=== PATIENT | female | born 1945 | race Caucasian/White ===

== ENCOUNTER 2020-12-15 07:04 | Day surgery (SDC) | payer BC ==
[~2020-12-15 07:04] MED LIST: Lactated Ringers 1,000 ML IV SCH; Sodium Chloride 0.9% 10 ML Syringe FLUSH PRN
[2020-12-15] MEDS ORDERED: Propofol 200 MG/20 ML SDV ONE (08:06)
[2020-12-15] MEDS ORDERED: Midazolam 1 MG/ML 2 ML SDV ONE (08:06)
[2020-12-15] MEDS ORDERED: Glycopyrrolate 0.2 MG/ML SDV ONE (08:06)
[2020-12-15] MEDS ORDERED: EPINEPHrine 1:10,000 1 MG/10 ML Syringe ONE (08:11)
--- NOTE | 2020-12-15 11:20 | PCM.PRNOTE ---
- Free Text/Narrative Note: PROCEDURE PERFORMED: Esophagogastroduodenoscopy with biopsy PRE-PROCEDURE DIAGNOSIS/INDICATION FOR PROCEDURE: Persistent epigastric pain CONSENT: Informed consent was obtained prior to the procedure after discussion of the risks (including pain, bleeding, infection, perforation, need for further procedures, adverse reaction to anesthesia, cardiovascular event), benefits and alternatives and expected outcomes. Verbal consent given and consent form signed. PROCEDURAL PAUSE: Completed SEDATION: Per anesthesia DESCRIPTION OF PROCEDURE: Patient was brought back to the operating room and placed in a left lateral decubitus position. Bite block placed. After adequate sedation and anesthetic was administered, endoscope was inserted into the patient's mouth and was passed easily through the esophagus and stomach into the duodenum without difficulty. Examined duodenum normal appearing. Pylorus normal appearing; biopsies obtained for H.pylori testing. Stomach, including viewing in retroflexion, normal appearing. 5cm hiatal hernia was present with the gastroesophageal junction at 35cm from the incisors and diaphragmatic pinch at 40cm from the incisors. Esophagus normal appearing. The scope was removed without difficulty. Patient tolerated the procedure well. No complications. IMPRESSION: Esophagogastroduodenoscopy performed revealing: - Small hiatal hernia - Biopsies for H.pylori testing pending PLAN: Will contact the patient when biopsy results received; patient has not been taking PPI in the past 2 weeks, so testing can be considered diagnostic without need for confirmatory repeat. Discussed appropriate administration of antacid medication. Follow-up with PCP in 1-2 weeks.
== END 2020-12-15 09:45 | disposition home or self-care (01) ==
LOC: KA.SDS 07:04
PROVIDERS: ATTEND Family Medicine
DX: K29.50 Unspecified chronic gastritis without bleeding (principal); K44.9 Diaphragmatic hernia without obstruction or gangrene; K31.89 Other diseases of stomach and duodenum; I78.1 Nevus, non-neoplastic; E78.2 Mixed hyperlipidemia; I10 Essential (primary) hypertension; Z79.899 Other long term (current) drug therapy
CPT/HCPCS: 00731; J2250; J2704; J3490; J7120

== ENCOUNTER 2023-12-18 11:45 | Observation (INO) | payer MEDICARE, BC ==
[2023-12-18 12:22] LABS: BASOPHILS ABSOLUTE AUTO 0.01 10^3/uL (0.00-0.10); BASOPHILS PERCENT AUTO 0.1 % (0.0-1.0); EOSINOPHILS ABSOLUTE AUTO 0.02 10^3/uL (0.10-0.30); EOSINOPHILS PERCENT AUTO 0.2 % (1.0-3.0); HEMATOCRIT 41.5 % (37.0-47.0); HEMOGLOBIN 14.1 g/dL (12.0-16.0); IMMATURE GRAN ABSOLUTE AUTO 0.02 10^3/uL (0.00-0.50); IMMATURE GRAN PERCENT AUTO 0.2 % (0.0-5.0); LYMPHOCYTES ABSOLUTE AUTO 0.51 10^3/uL (1.00-4.00); MEAN CORPUSCULAR HEMOGLOBIN 30.4 pg (27.0-31.0); MEAN CORPUSCULAR VOLUME 89.4 fL (82.0-92.0); MEAN PLATELET VOLUME 9.9 fL (7.4-10.4); MONOCYTES ABSOLUTE AUTO 0.16 10^3/uL (0.10-0.80); MONOCYTES PERCENT AUTO 1.9 % (2.0-8.0); NEUTROPHILS ABSOLUTE AUTO 7.79 10^3/uL (2.50-7.00); NEUTROPHILS PERCENT AUTO 91.6 % (50.0-70.0); PLATELET COUNT,PLT 128 10^3/uL (150-400); RED BLOOD CELL COUNT 4.64 10^6/uL (3.80-5.50); RED CELL DISTRIBUTION WIDTH 13.1 % (11.5-14.5); WHITE BLOOD CELL COUNT,WBC 8.51 10^3/uL (5.00-10.00)
[2023-12-18 12:23] LABS: APPEARANCE,URINE SLIGHTLY CLOUDY (CLEAR); BILIRUBIN,URINE NEGATIVE (NEGATIVE); COLOR,URINE YELLOW (YELLOW); GLUCOSE,URINE NEGATIVE (NEGATIVE); KETONES,URINE NEGATIVE (NEGATIVE); LEUKOCYTE ESTERASE,URINE SMALL (NEGATIVE); NITRITE,URINE NEGATIVE (NEGATIVE); OCCULT BLOOD,URINE TRACE-INTACT (NEGATIVE); PH,URINE 5.5 (5.0-9.0); PROTEIN,URINE NEGATIVE (NEGATIVE); UROBILINOGEN,URINE 0.2 E.U./dL (0.2-1.0)
[2023-12-18 12:31] LABS: BACTERIA,URINE FEW /HPF (NONE TO FEW); EPITHELIAL CELLS,URINE FEW /LPF; MUCUS,URINE FEW /LPF (NEGATIVE); RBC,URINE 0-5 /HPF (0-5)
[2023-12-18 12:41] LABS: ALANINE AMINOTRANSFERASE,ALT 23 U/L (14-63); ALBUMIN 4.24 g/dL (3.40-5.00); ALKALINE PHOSPHATASE 82 U/L (46-116); ANION GAP 15.3 mmol/L (5-15); ASPARTATE AMNIOTRANSFERASE,AST 17 U/L (15-37); BILIRUBIN TOTAL 0.7 mg/dL (0.2-1.0); BLOOD UREA NITROGEN,BUN 15 mg/dL (7-18); CARBON DIOXIDE,CO2 25.6 mmol/L (21.0-32.0); CHLORIDE,CL 101 mmol/L (98-107); CREATININE 0.72 mg/dL (0.51-1.17); EST CRCL DRUG DOSING (CG) 54.13 mL/min; GLUCOSE RANDOM 89 mg/dL (70-140); POTASSIUM,K 3.9 mmol/L (3.5-5.1); PROTEIN TOTAL,TP 7.3 g/dL (6.4-8.2); SODIUM,NA 138 mmol/L (136-145)
[2023-12-18 12:42] LABS: ESTIMATED GFR 86 mL/min (>=60)
[2023-12-18] MEDS: Sodium Chloride 0.9% 1,000 ML IV ONE (13:18)
[2023-12-18 13:23] LABS: INFLUENZA A NAA NEGATIVE (NEGATIVE); INFLUENZA B NAA NEGATIVE (NEGATIVE)
[2023-12-18 13:24] LABS: CORONAVIRUS COVID-19 NAA NEGATIVE (NEGATIVE)
[2023-12-18] MEDS ORDERED: Ondansetron 4 MG/2 ML SDV IV PRN (15:13)
[2023-12-18] MEDS ORDERED: Labetalol 100 MG/20 ML MDV IVPUSH PRN (15:20)
[2023-12-18] MEDS: Sodium Chloride 0.9% 1,000 ML IV SCH (15:39)
[2023-12-18] MEDS: Cefepime 2 GM in Sodium Chloride 0.9% 50 ML IV SCH (16:01)
[2023-12-18] MEDS: Atenolol 25 MG Tab PO SCH (16:03)
[2023-12-18] MEDS: Acetaminophen 325 MG Tab PO PRN (18:09)
[2023-12-18] MEDS: Rosuvastatin 5 MG Tab PO SCH (20:12)
[2023-12-18] MEDS: Famotidine 20 MG Tab PO SCH (20:12)
[2023-12-19] MEDS: Sodium Chloride 0.9% 10 ML Syringe FLUSH PRN (03:40)
[2023-12-19] MEDS ORDERED: Sodium Chloride 0.9% 10 ML Syringe FLUSH PRN (05:30)
[2023-12-19 07:09] LABS: HEMATOCRIT 35.6 % (37.0-47.0); MEAN CORPUSCULAR HEMOGLOBIN 30.5 pg (27.0-31.0); MEAN CORPUSCULAR HGB CONC 33.7 g/dL (32.0-36.0); MEAN CORPUSCULAR VOLUME 90.4 fL (82.0-92.0); MEAN PLATELET VOLUME 9.6 fL (7.4-10.4); PLATELET COUNT,PLT 105 10^3/uL (150-400); RED BLOOD CELL COUNT 3.94 10^6/uL (3.80-5.50); RED CELL DISTRIBUTION WIDTH 13.2 % (11.5-14.5); WHITE BLOOD CELL COUNT,WBC 3.56 10^3/uL (5.00-10.00)
[2023-12-19 07:20] LABS: ALBUMIN 3.32 g/dL (3.40-5.00); ANION GAP 11.1 mmol/L (5-15); BILIRUBIN TOTAL 0.8 mg/dL (0.2-1.0); CALCIUM 8.1 mg/dL (8.7-10.3); CARBON DIOXIDE,CO2 25.9 mmol/L (21.0-32.0); CREATININE 0.72 mg/dL (0.51-1.17); EST CRCL DRUG DOSING (CG) 54.13 mL/min; PROTEIN TOTAL,TP 6.1 g/dL (6.4-8.2)
== END 2023-12-19 12:50 | disposition home or self-care (01) ==
LOC: KA.ED 11:45 → KA.MS 13:29
PROVIDERS: ADMIT Internal Medicine; ATTEND Internal Medicine
DX: E86.0 Dehydration (principal); R55 Syncope and collapse; N39.0 Urinary tract infection, site not specified; I10 Essential (primary) hypertension; E78.00 Pure hypercholesterolemia, unspecified; R79.89 Other specified abnormal findings of blood chemistry; Z79.899 Other long term (current) drug therapy; Z20.822 Contact with and (suspected) exposure to COVID-19; Z91.09 Other allergy status, other than to drugs and biological substances
CPT/HCPCS: 0240U; 36415; 51798; 71045; 80053; 81001; 83605; 83735; 84484; 85025; 85027; 87040; 87086; 93005; 93010; 96360; 96361; 96365; 96366; 99223-GT; 99238-GT; 99284; 99285-25; A9270-GY; G0378; J0692; J3490; J7030; Q3014

== ENCOUNTER 2024-09-19 19:59 | Emergency (ER) | payer BC, MEDICARE ==
[2024-09-19] MEDS: Labetalol 100 MG/20 ML MDV IVPUSH ONE (21:05)
== END 2024-09-19 22:10 | disposition home or self-care (01) ==
LOC: KA.ED 19:59
DX: I10 Essential (primary) hypertension (principal); E78.00 Pure hypercholesterolemia, unspecified; K21.9 Gastro-esophageal reflux disease without esophagitis; Z88.8 Allergy status to other drugs, medicaments and biological substances; Z79.899 Other long term (current) drug therapy
CPT/HCPCS: 96374; 99283-25; 99284; A9270-GY; J1920